=== PATIENT | female | born 1960 | race Hispanic/Latino ===

== ENCOUNTER 2017-04-29 11:18 | Outpatient (CLI) | payer MEDICAID ==
--- NOTE | 2017-04-29 13:50 | Mammography Report ---
BILATERAL DIGITAL DIAGNOSTIC MAMMOGRAM with CAD: 04/29/17 11:18:00 CLINICAL: Left palpable lump. COMPARISON:04/22/16 FINDINGS: The breasts are heterogeneously dense, which may obscure small masses.No mass, architectural distortion or suspicious calcifications. A palpable marker is identified in the left axilla and there is no corresponding mass or lymph node at the marker. In fact, several small lymph nodes identified on the prior mammogram are no longer seen. She could not stay for an ultrasound of the left axilla. IMPRESSION: Negative mammogram but an incomplete workup of a palpable lump without an ultrasound of the left axilla. BI-RADS CATEGORY: 0--Needs Additional Imaging RECOMMENDATION: Return for a left breast ultrasound to include the left axilla at the palpable marker. ACR BI-RADS MAMMOGRAPHIC CODES: 0 = Needs additional imaging evaluation; 1 = Negative; 2 = Benign; 3 = Probably benign; 4 = Suspicious; 5 = Malignant; 6 = Known biopsy-proven malignancy COMMENT: 1. Dense breast tissue, i.e., adenosis, fibrocystic changes, etc., may obscure an underlying neoplasm. 2. Approximately 10% of cancers are not detected with mammography. 3. A negative mammography report should not delay biopsy if a clinically suspicious mass is present. COMMENT: Patient follow-up letters are generated by our [employer] application.
== END 2017-04-29 11:19 | disposition home or self-care (01) ==
LOC: SPVWC 11:18
PROVIDERS: ATTEND Family Medicine
DX: N63 Unspecified lump in breast (principal)
CPT/HCPCS: 77066; G0204